=== PATIENT | female | born 1945 | race Caucasian/White ===

== ENCOUNTER 2017-03-15 15:15 | Outpatient (CLI) | payer MEDICARE ==
--- NOTE | 2017-03-16 14:16 | Ultrasound Report ---
CAROTID DUPLEX: 03/15/2017 CLINICAL INDICATION: Two episodes of loss of control of motor function. TECHNIQUE: Real-time sonographic vascular imaging was performed by the manager inventory through the carotid arteries utilizing both color-flow and Doppler spectral analysis. Multiple sales representative printing supplies static images were saved for review. Vessel PSV cm/sec 2D Plaque Estimate % EDV cm/sec ICA/CCA PSV % Stenosis RCCA Prox 72 -- RCCA Dist 64 20 -- RECA 68 -- RT BULB 58 -- 20 0.90 CONNER Prox 60 -- 18 0.93 CONNER Mid 50 -- 11 0.78 CONNER Dist 58 -- 22 0.90 RVA 47 RVA flow direction: Antegrade. Vessel PSV cm/sec 2D Plaque Estimate % EDV cm/sec ICA/CCA PSV % Stenosis LCCA Prox 75 -- LCCA Dist 74 25 -- LECA 63 -- LFT BULB 58 -- 18 0.78 LICA Prox 49 -- 20 0.66 LICA Mid 71 -- 32 0.95 LICA Dist 63 -- 23 0.85 LVA 75 LVA flow direction: Antegrade. Velocity criteria are extrapolated from diameter data as defined by the Society of Radiologists in Ultrasound Consensus Conference Radiology 2003; 229; 340-346. Degree of Stenosis % ICA PSV cm/sec Plaque Estimate % ICA/CCA RSV Ratio ICA EDV cm/sec Normal < 125 None < 2.0 < 40 <50 < 125 < 50 < 2.0 < 40 50-69 125 - 130 >/= 50 2.0 - 4.0 40 - 100 >/= 70 but less than near occlusion > 230 >/= 50 > 4.0 > 100 Near occlusion High, low, or undetectable Visible lumen Variable Variable Total occlusion Undetectable No detectable lumen Not applicable Not applicable FINDINGS RIGHT: There is minimal plaquing in the right carotid bifurcation, without evidence of a focal hemodynamically significant carotid stenosis. LEFT: There is minimal plaquing in the left carotid bifurcation, without evidence of a focal hemodynamically significant carotid stenosis. The vertebral arteries demonstrate antegrade flow bilaterally. Note is made of a 2.3 x 1.5 x 1.2 cm heterogeneous partially circumscribed nodule in the right lobe of the thyroid, with a few internal calcifications. Consider thyroid ultrasound. IMPRESSION: NO EVIDENCE OF A FOCAL HEMODYNAMICALLY SIGNIFICANT CAROTID STENOSIS. RIGHT THYROID NODULE. RECOMMENDATION: FORMAL THYROID ULTRASOUND. MTDD
== END 2017-03-15 15:16 | disposition home or self-care (01) ==
LOC: DI 15:15
PROVIDERS: ATTEND Nurse Practitioner Family
DX: R42 Dizziness and giddiness (principal); E04.1 Nontoxic single thyroid nodule
CPT/HCPCS: 93880

== ENCOUNTER 2017-03-17 14:39 | Outpatient (CLI) | payer MEDICARE ==
--- NOTE | 2017-03-18 10:30 | CT Report ---
CT BRAIN WITHOUT CONTRAST: 03/17/2017 CLINICAL INDICATION: Loss of control of limb and bowels for one week. TECHNIQUE: Axial CT images of the brain were obtained without intravenous contrast. No previous CT is available for comparison. In accordance with CT protocol optimization, one or more of the following dose reduction techniques w ere utilized for this exam: automated exposure control, adjustment of mA and/or KV based on patient size, or use of iterative reconstructive technique. FINDINGS: There is a remote right frontal cortical infarction present, with encephalomalacia. Mild chronic ischemic changes are seen in the periventricular white matter structures. There is no eviden ce of ventriculomegaly. The basilar cisterns are patent. No acute hemorrhage, mass effect, or midli ne shift is present. The visualized orbital contents and paranasal sinuses are unremarkable. IMPRESSION: REMOTE RIGHT FRONTAL CORTICAL INFARCTION, AND CHRONIC ISCHEMIC CHANGES IN THE PERIVENTRI CULAR WHITE MATTER STRUCTURES. NO EVIDENCE OF ACUTE HEMORRHAGE OR MASS EFFECT. JOB #: [id number] EXT JOB #:[id number]
== END 2017-03-17 14:40 | disposition home or self-care (01) ==
LOC: DI 14:39
PROVIDERS: ATTEND Nurse Practitioner Family
DX: M62.81 Muscle weakness (generalized) (principal); R15.9 Full incontinence of feces; I67.82 Cerebral ischemia; Z86.73 Personal history of transient ischemic attack (TIA), and cerebral infarction without residual deficits
CPT/HCPCS: 70450

== ENCOUNTER 2018-05-14 14:52 | Outpatient (CLI) | payer MEDICARE ==
--- NOTE | 2018-05-15 11:42 | Ultrasound Report ---
Reason: NONTOXIC SINGLE THYROID NODULE Procedure Date: 05/14/2018 Accession Number: [id number] / [id number] Procedure: US - Head or Neck Soft Tissue CPT Code: FULL RESULT: EXAM: THYROID ULTRASOUND EXAM DATE: 05/14/2018 03:57 PM. CLINICAL HISTORY: Nontoxic single thyroid nodule. COMPARISON: HEAD OR NECK SOFT TISSUE 04/21/2017 8:27 AM. TECHNIQUE: Real time sonographic imaging of the thyroid was performed by the auto machinist. Multiple sales representative groceries static images were saved for review. FINDINGS: THYROID GLAND: Right Lobe: 4.1 x 1.5 x 1.7 cm, volume 5.5 cc. Normal background echotexture. Right Lobe Nodules: Dominant 2.0 x 1.4 x 1.5 cm solid nodule with calcifications and vascularity, unchanged accounting for differences in technique. Additionally, 0.5 cm heterogeneous hypoechoic nodule as well as 0.6 cm and 0.4 cm heterogeneous hypoechoic nodules all of which do not meet criteria for FNA. Left Lobe: 3.9 x 1.2 x 1.1 cm, volume 2.7 cc. There are two 0.5 cm heterogeneous hypoechoic thyroid nodules which do not meet criteria for FNA. Left Lobe Nodules: None. Isthmus: 0.3 cm AP. Isthmic Nodules: None. LYMPH NODES: No adenopathy demonstrated in the central or lateral compartment. OTHER: None. IMPRESSION: Stable dominant left thyroid nodule. If this nodule has not undergone tissue sampling, the recommendation for FNA stands. Other small nodules do not meet criteria for tissue diagnosis. Management recommendations are based on 2015 [place] [employer] Management Guidelines for Adult Patients with Thyroid Nodules and Differentiated Thyroid Cancer. RADIA
== END 2018-05-14 14:53 | disposition home or self-care (01) ==
LOC: DI 14:52
PROVIDERS: ATTEND Registered Nurse
DX: E04.2 Nontoxic multinodular goiter (principal)
CPT/HCPCS: 76536

== ENCOUNTER 2018-05-25 15:09 | Outpatient (CLI) | payer MEDICARE ==
--- NOTE | 2018-05-26 08:47 | Mammography Report ---
Reason: SCREENING MAMMO Procedure Date: 05/25/2018 Accession Number: [id number] / [id number] Procedure: [facility]IN - Screening Mammo w/Gasper CPT Code: FULL RESULT: EXAM: Screening Mammo w/Gasper DATE: 05/25/2018 3:36 PM CLINICAL HISTORY: Screening encounter. History of early menses and late childbearing. TECHNIQUE: Bilateral CC and MLO views were obtained. COMPARISON: 04/16/2016 through 01/25/2013. FINDINGS: The breasts demonstrate diffuse fatty replacement bilaterally. Typically benign intramammary lymph nodes are again noted bilaterally. No suspicious masses, clustered microcalcifications, or regions of architectural distortion are identified. IMPRESSION: Benign findings RECOMMENDATION: Routine annual screening unless otherwise clinically indicated. BIRADS CATEGORY 2: Benign findings STANDARD QUALIFYING STATEMENTS: 1. This examination was not reviewed with the aid of Computer-Aided Detection (CAD). 2. A negative or benign imaging report should not preclude biopsy if clinically suspicious findings are present. 3. Dense breasts may obscure an underlying neoplasm. 4. This examination was reviewed with the aid of 3D breast imaging (tomosynthesis).
== END 2018-05-25 15:10 | disposition home or self-care (01) ==
LOC: DI 15:09
PROVIDERS: ATTEND Registered Nurse
DX: Z12.31 Encounter for screening mammogram for malignant neoplasm of breast (principal)
CPT/HCPCS: 77063; 77067

== ENCOUNTER 2019-06-17 13:25 | Emergency (ER) | payer MEDICARE ==
[2019-06-17 14:54] VITALS: BP 126/82
--- NOTE | 2019-06-17 15:14 | ED Physician Documentation ---
PD HPI FOCAL NEURO - Stated complaint Stated Complaint: L HAND NUMBNESS - Chief complaint Chief Complaint: Neuro - History obtained from History obtained from: Patient - History of Present Illness Timing - onset: Yesterday Timing - duration: Days (1) Timing - details: Abrupt onset, Now resolved Weakness: No: Face, Arm, Hand, Leg, Foot, Right, Left, Other Numbness: Hand Associated symptoms: No: Headache, Nausea / vomiting, Syncope, Head injury, Neck pain, Fever Baseline status: positive: A&OX3, ambulatory, indep Similar symptoms before: Has not had sx before Recently seen: Not recently seen - Additional information Additional information: This is a 73-year-old woman who woke up yesterday morning with her left hand feeling numb. 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 Throughout the day it slowly returned. She never experienced any [id number] and now it is "mostly okay" however she is noticed that when she reaches behind her computer to hit the on off button she cannot find it with her left hand she has to use her right hand so there is still some limitation in the sensation at her fingertips. Her daughter had called to talk to her and she mentioned it. Her daughter's is a physician and he said she should come in and be seen immediately. She did not have any pain she had no limitation in the range of motion. She denies neck pain. She never had a stroke. She does not have headache. She is right-handed but she is recently had a head cold since before Mandy some sore throat and postnasal drip congestion so she has been more sedentary and reading a lot on her tablet. She holds a tablet in her left hand and she had noted several times over the past several days that the hand was getting very fatigued and she would have to change positions and not hold the tablet anymore. Her head cold is improving although she still has some yellow-brown nasal mucus. She is using a Jade pot to try and flush that out. Review of Systems Constitutional: denies: Fever Eyes: denies: Decreased vision Ears: denies: Loss of hearing Nose: reports: Congestion, Sinus pressure / pain Throat: reports: Sore throat Respiratory: denies: Dyspnea GI: denies: Nausea, Vomiting : denies: Dysuria Skin: denies: Rash Musculoskeletal: denies: Neck pain, Extremity pain, Extremity swelling Neurologic: reports: Numbness. denies: Generalized weakness, Focal weakness, Near syncope, Syncope, Confused, Altered mental status, Headache, Head injury Endocrine: reports: Other (She is not diabetic) PD PAST MEDICAL HISTORY - Past Medical History Past Medical History: Yes Cardiovascular: High cholesterol, Arrhythmia Respiratory: None Endocrine/Autoimmune: None GI: None : None HEENT: Chronic vision loss Psych: Depression Musculoskeletal: Osteoarthritis Derm: None Other Past Medical History: Macular degeneration. 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: section - Present Medications Home Medications: Ambulatory Orders Medication Instructions Recorded Confirmed Duloxetine HCl [Cymbalta] 60 DAILY 07/17/14 07/17/14 Pravastatin Sodium [Pravachol] 20 DAILY 07/17/14 07/17/14 - Allergies Allergies/Adverse Reactions: Allergies Allergy/AdvReac Type Severity Reaction Status Date / Time No Known Drug Allergies Allergy Verified 06/17/19 14:56 - Social History Does the pt smoke?: No Smoking Status: Never smoker Does the pt drink ETOH?: No Does the pt have substance abuse?: No - Immunizations Immunizations are current?: No Immunizations: TDAP >10years/unknown PD ED PE NORMAL - Vitals Vital signs reviewed: Yes - General General: Alert and oriented X 3, No acute distress, Well developed/nourished - HEENT HEENT: Atraumatic, PERRL, EOMI, Moist mucous membranes, Pharynx benign - Neck Neck: Supple, no meningeal sign, No adenopathy - Cardiac Cardiac: RRR, Other (Equal radial pulses) - Respiratory Respiratory: No respiratory distress - Derm Derm: Normal color, Warm and dry, No rash - Extremities Extremities: No deformity, No tenderness to palpate, Normal ROM s pain, No edema - Neuro Neuro: Alert and oriented X 3, tufting creeler 2-12 intact, No motor deficit, No sensory deficit, Normal speech, Other (Two-point discrimination is intact to all 5 of the digits on the left hand) - Psych Psych: Normal mood, Normal affect Results - Vitals Vitals: Vital Signs - 24 hr 06/17/19 06/17/19 13:37 13:40 Temperature 36.6 C Heart Rate 98 98 Respiratory 17 18 Rate Blood Pressure 123/79 126/82 H O2 Saturation 98 97 Oxygen O2 Source Room air PD MEDICAL DECISION MAKING - ED course Complexity details: d/w patient ED course: Patient sensation has returned to almost normal. Two-point discrimination is intact. I suspect that this has to do with holding the tablet for prolonged periods of time reading over the last several days since she is felt so ill with her cold. We discussed antibiotics but she would prefer to continue using the Jade pot and try to flush this out. She plans to follow with her primary doctor if not improving. She did give me permission to talk to her son-in-law if he would like to call and talk with me. Departure - Departure Disposition: 01 Home, Self Care Clinical Impression: Hand paresthesia Qualifiers: Laterality: left Qualified Code(s): R20.2 - Paresthesia of skin URI (upper respiratory infection) Qualifiers: URI type: unspecified viral URI Qualified Code(s): J06.9 - Acute upper respiratory infection, unspecified Condition: Good Instructions: ED Paraesthesias Follow-Up: Clair Ortega ARNP [Primary Care Provider] - Comments: Avoid holding the reading tablet in your left hand. Continue to use the [place] pot and sinus rinse although I would use a balanced salt in it and not table salt. Steam can also help to thin the secretions for drainage. Follow-up with your primary care provider if your upper respiratory symptoms are not improving or if the paresthesias in your hand return and persist. Discharge Date/Time: 06/17/19 15:45
== END 2019-06-17 15:45 | disposition home or self-care (01) ==
LOC: ED 13:25
DX: R20.2 Paresthesia of skin (principal); J06.9 Acute upper respiratory infection, unspecified
CPT/HCPCS: 99281; 99282

== ENCOUNTER 2019-08-24 16:24 | Outpatient (CLI) | payer MEDICARE ==
--- NOTE | 2019-08-24 17:27 | XRAY Report ---
Reason: PNEUMONIA, UNSPECIFIED ORGANISM Procedure Date: 08/24/2019 Accession Number: [id number] / [id number] Procedure: XR - Chest 2 View X-Ray CPT Code: 84643 Final Report FULL RESULT: EXAM: CHEST RADIOGRAPHY EXAM DATE: 08/24/2019 05:02 PM. CLINICAL HISTORY: PNEUMONIA, UNSPECIFIED ORGANISM. COMPARISON: None. TECHNIQUE: 2 views. FINDINGS: Lungs/Pleura: Patchy peribronchovascular opacities in the right upper and lower lobes could reflect multifocal pneumonia. No pneumothorax. No pleural effusions. Mediastinum: Cardiomegaly evident. Other: None. IMPRESSION: 1. Patchy peribronchovascular opacities in the right upper and lower lobes could reflect multifocal pneumonia. 2. Incidental cardiomegaly. RADIA
== END 2019-08-24 16:25 | disposition home or self-care (01) ==
LOC: DI 16:24
PROVIDERS: ATTEND Registered Nurse
DX: J18.9 Pneumonia, unspecified organism (principal); I51.7 Cardiomegaly
CPT/HCPCS: 71046

== ENCOUNTER 2019-08-28 12:19 | Outpatient (CLI) | payer MEDICARE | END 2019-08-28 12:20 | disposition short-term general hospital (02) | LOC: EMS 12:19 | PROVIDERS: ATTEND Surgery | DX: R41.82 Altered mental status, unspecified (principal); R11.10 Vomiting, unspecified; R53.1 Weakness | CPT/HCPCS: A0425; A0427 ==